=== PATIENT | male | born 1970 | race Caucasian/White ===

== ENCOUNTER → 2021-11-16 08:52 | Outpatient (BNVA) | payer OTHER, SELFPAY | PROVIDERS: Visit Provider Surgery | DX: Z20.822 Contact with and (suspected) exposure to COVID-19 (principal) | CPT/HCPCS: 87635 ==

== ENCOUNTER 2021-11-19 08:02 | Day surgery (SDC) | payer OTHER, SELFPAY ==
[2021-11-18 12:21] VITALS: BMI 26.9
--- NOTE | 2021-11-19 08:10 | P.HP_ITS ---
Same Day Surgery H&P Indication for Procedure/HPI DATE OF PROCEDURE: November 19, 2021 CHIEF COMPLAINT/INDICATIONFOR SURGICAL PROCEDURE: umbilical hernia repair PREOP DIAGNOSIS: Umbilical hernia PLANNED PROCEDURE: Operation Date: 11/19/21 09:20 Proposed Procedures p Open Umbilical Hernia Repair w/ Mesh [id number] K42.9(Not Applicable) - Vince oDbbs MD Medications/Allergies* Home Medications Medication Instructions Recorded Confirmed Type No Known Home Medications 11/03/21 11/03/21 History Allergies/Adverse Reactions Allergy/AdvReac Type Severity Reaction Status Date / Time No Known Allergies Allergy Verified 11/18/21 12:20 Pertinent History/Comorbid Conditions* Medical History (Updated 11/03/21 @ 08:25 by Vince Dobbs MD) 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
[2021-11-19 08:27] VITALS: BP 129/76; PULSE 79; RESP 18; TEMP 36.8; O2SAT 99
[2021-11-19] MEDS: sodium chloride 0.9% 1,000 ML 30 ML IV (08:32)
--- NOTE | 2021-11-19 08:32 | P.ANESASSM_ITS ---
Pre-Anesthetic Assessment Height/Weight: Height 1.91 m Weight 97.522 kg Temp Pulse Resp BP Pulse Ox 98.3 F 79 18 129/76 99 11/19/21 08:27 11/19/21 08:27 11/19/21 08:27 11/19/21 08:27 11/19/21 08:27 Preop Diagnosis: Umbilical hernia Operation Date: 11/19/21 09:20 Proposed Procedures p Open Umbilical Hernia Repair w/ Mesh [id number] K42.9(Not Applicable) - Vince Dobbs MD Familial anesthetic complications: none Was Beta Danny taken within 24 hours: N/A Was Clonidine taken within 24 hours: N/A Last intake: Intake Last Liquid Date 11/18/21 Last Liquid Time 20:00 Last Solid Date 11/18/21 Last Solid Time 20:00 Social Alcohol (several beers a night) and No tobacco Exam alert, oriented x 3, clear to auscultation bilaterally and regular rate & rhythm Airway Mallampati: Class III Dentition: other (veneers) Neuropsych guillain barre at age 3 Anesthetic Plan ASA status: 2 Anesthesia: General Medications/Allergies Home Medications Medication Instructions Recorded Confirmed Last Taken Type No Known Home Medications 11/03/21 11/03/21 Unknown History Allergies Allergy/AdvReac Type Severity Reaction Status Date / Time No Known Allergies Allergy Verified 11/19/21 08:27 [facility] Anesthesia Medical History (Updated 11/03/21 @ 08:25 by Vince Dobbs MD) 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
[2021-11-19 09:43] VITALS: BP 132/84; PULSE 79; RESP 18; TEMP 36.8; O2SAT 94
[2021-11-19 09:48] VITALS: BP 132/81; PULSE 80; RESP 18; O2SAT 92
[2021-11-19 09:53] VITALS: BP 118/69; PULSE 81; RESP 16; O2SAT 93
[2021-11-19 09:58] VITALS: BP 128/72; PULSE 78; RESP 18; TEMP 36.7; O2SAT 98
[2021-11-19 09:59] VITALS: BP 127/82; PULSE 81; RESP 16; TEMP 36.7; O2SAT 98
--- NOTE | 2021-11-19 11:10 | PM.OP ---
Operative Report Date of procedure: November 19, 2021 Pre-op diagnosis: Incarcerated umbilical hernia Post-op diagnosis: Incarcerated umbilical hernia containing omentum with a defect measuring 2.5 cm Procedure done: Open repair of umbilical hernia with Ultrapro mesh as an onlay mesh Pathology: none sent Surgeon: Vince Dobbs Anesthesia: General Condition: stable Disposition: PACU Procedure: The patient was taken to the operating room and intubated under general anesthesia after IV antibiotic had been administered. The abdomen was prepped and draped in a sterile manner. A 2 cm infraumbilical curvilinear incision was made using a 15 blade, hernial sac dissected out using electrocautery and hemostats. The hernial sac was opened and omentum was reduced into the peritoneal cavity. The defect measured 2.5 cm. Interrupted sutures using 0 Vicryl was used to close the hernial defect without any tension. The subcutaneous space was opened around the umbilicus using electrocautery and 4 x 4 centimeter piece of Ultrapro mesh was placed as an onlay mesh and secured with 3-0 Vicryl sutures. The subcutaneous tissue was approximated using 3-0 Vicryl and skin was closed using running subcuticular 4-0 Monocryl sutures. Dermabond was then applied and 10 mL of 0.5% Marcaine was infiltrated around the incision. A 2 x 2 gauze was then placed within the umbilicus and sterile dressings are applied. The patient was stable throughout the procedure.
--- NOTE | 2021-11-19 14:20 | ANE.PACU2 ---
Inpatient post-anesthesia follow up: Airway intact: Yes Vital signs: Temperature 98.0 F Pulse Rate 81 Respiratory Rate 16 Blood Pressure 127/82 Pulse Oximetry 98 Oxygen Delivery Me thod Room Air Oxygen Flow Rate Fraction of Inspir ed Oxygen Hydration adequate: Yes Nausea and vomiting: No Pain level: 2 Mental status: Baseline
== END 2021-11-19 10:30 | disposition home or self-care (01) ==
PROVIDERS: PCP Family Medicine; Visit Provider Surgery
PROC: (CPT 49587; principal; 2021-11-19 09:00)
DX: K42.0 Umbilical hernia with obstruction, without gangrene (principal); Z85.89 Personal history of malignant neoplasm of other organs and systems
CPT/HCPCS: 49587; J0690; J1100; J2405; J2704; J2710; J3010; J3490; J7030